=== PATIENT | male | born 1960 | race Hispanic/Latino ===

== ENCOUNTER → 2023-08-02 | Outpatient (CLI) | payer OTHER ==
[~2023-08-02] MED LIST: FEXO180T94 PO; LOSA-424 PO; NAPR-1023 PO; TADA5TAB PO; TRAM1TAB2 PO
== END | disposition home or self-care (01) ==
LOC: RAH 12:49
PROVIDERS: ATTEND Internal Medicine Cardiovascular Disease
DX: Z13.6 Encounter for screening for cardiovascular disorders (principal)
CPT/HCPCS: 75571

== ENCOUNTER → 2023-08-17 | Outpatient (CLI) | payer OTHER | END | disposition home or self-care (01) | LOC: RAH 13:58 | PROVIDERS: ATTEND Internal Medicine Cardiovascular Disease | DX: I51.7 Cardiomegaly (principal); R07.9 Chest pain, unspecified | CPT/HCPCS: 93306 ==

== ENCOUNTER → 2023-08-23 | Outpatient (CLI) | payer OTHER ==
[~2023-08-23] MED LIST changes: +REGADENOSON 0.4 MG/5 ML PF SYG IVP SCH
== END | disposition home or self-care (01) ==
LOC: RAH 08:51
PROVIDERS: ATTEND Internal Medicine Cardiovascular Disease
DX: R94.31 Abnormal electrocardiogram [ECG] [EKG] (principal)
CPT/HCPCS: 78452; 96374; 93017; J2785; A9500 ×2

== ENCOUNTER 2024-10-03 07:22 | Observation (INO) | payer OTHER ==
--- NOTE | 2024-10-01 13:04 | EKG ---
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
[2024-10-01 13:10] VITALS: BP 151/83; PULSE 69; RESP 16; TEMP 97.9
[~2024-10-03] VITALS: Ht 180.3 cm; Wt 110.2 kg
[2024-10-03] VITALS (25 sets, daily range): BP systolic 110–179; BP diastolic 52–96; PULSE 65–98; RESP 11–20; TEMP 96.9–98.5; O2SAT 94–96
[~2024-10-03 07:22] MED LIST changes: +EZET10TA81 PO; +FINA5TAB41 PO; -NAPR-1023 PO; -REGADENOSON 0.4 MG/5 ML PF SYG IVP SCH; -TADA5TAB PO
[2024-10-03] MEDS ORDERED: SUCCINYLCHOLINE CHLORIDE 20 MG/ML 10 ML VIAL ONE (07:33)
[2024-10-03] MEDS ORDERED: ondanSETRON 4MG INJ ONE (07:33)
[2024-10-03] MEDS ORDERED: LIDOCAINE PF 100MG/5ML (2%) SYRINGE 5ML ONE (07:33)
[2024-10-03] MEDS ORDERED: rocuRONium bROMide 10MG/1ML 5ML VL ONE (07:34)
[2024-10-03] MEDS ORDERED: dexaMETHasone SOD PHOSPHATE 10MG/ML 1ML VIAL ONE (07:34)
[2024-10-03] MEDS ORDERED: GLYCOPYRROLATE 0.2 MG/ML 5 ML VIAL ONE (07:34)
[2024-10-03] MEDS ORDERED: NEOSTIGMINE METHYLSULFATE 1MG/ML IV ONE (07:34)
[2024-10-03] MEDS ORDERED: FENTanyl CITRate PF 50 MCG/1 ML 2ML VIAL ONE ×4 (07:34→16:19)
[2024-10-03] MEDS ORDERED: proPOFol 10 MG/ML 20ML VIAL IV ONE (07:34)
[2024-10-03] MEDS ORDERED: MIDAZOLAM HCL 1 MG/ML 2ML VIAL ONE (07:43)
[2024-10-03] MEDS: ceFAZolin SODIUM 2 GM VIAL ONE (07:58)
[2024-10-03] MEDS: LACTATED RINGERS 1000ML 1,000 ML IV ONE (07:58)
[2024-10-03] MEDS: ceFAZolin SODIUM 1 GM VIAL ONE ×2 (12:13→14:26)
[2024-10-03] MEDS ORDERED: phenylEPHRINE HCL 10 MG/ML 1ML VIAL IV ONE (12:21)
--- NOTE | 2024-10-03 16:14 | OP ---
Operative Note: DATE OF PROCEDURE: 10/03/24 SURGEON: TEOFILO WILEY MD STRETCHER OPERATOR: [Conchita Baxter CFA] ANESTHESIA: [General anesthesia plus regional block] ANESTHESIOLOGIST/CHAIR MECHANIC: [drew Barrera CRNA] PREOPERATIVE DIAGNOSIS: [Right ankle arthritis] POSTOPERATIVE DIAGNOSIS: [Posttraumatic arthritis right ankle, cables foot] PROCEDURE: [Right ankle fusion] ESTIMATED BLOOD LOSS: [200 mL] INDICATIONS: [64-year-old male with history of chronic pain to the right ankle that exacerbated in the last year. X-rays show the presence of very severe arthrosis of the right ankle. The patient has a congenital cavovarus deformity. The presence of the both the operating room for a right ankle fusion. Procedure understood, risks, benefits and possible complications and agreed signed the consent form] DESCRIPTION OF PROCEDURE: [ After general anesthesia was achieved and placement of a regional block the patient's right lower extremity was prepped and draped in the usual manner previous placement of the tourniquet in the proximal thigh. The extremity was elevated and exsanguinated with an Esmarch and the tourniquet was inflated to 250 mmHg. Attention was given to the right ankle where a longitudinal incision was made in the lateral aspect just proximal to of the lateral malleolus and extended curvilinearly of the tip of the malleolus distally. The dissection was carried down through the subcutaneous tissue under the fibular was reached and then subperiosteal dissection was carried down to expose it. It was noted that the fibula had posttraumatic changes of the lateral malleolus that involved the tibia which was encased in the anterior aspect of the fibula with the use of an oscillating saw the distal shaft of the fibula was cut and then dissection was carried down around the fibular lateral malleolus until we were able to remove it. There was a large anterior osteophyte on the tibia that we removed with the use of an osteotome and the same was in the neck of the talus and this allowed for a improvement in the motion of the ankle. Once this was achieved we proceeded to applied to guidewires in the distal tibia and talus with the use of the alignment is present we proceeded to use this pin as a support to be able to open the joint. Then with the use of an osteotome we proceeded to scrape off the remaining cartilage followed by the use of the straight and curved curettes and finishing with the use of the small bur to wrist the subchondral bone in both surfaces. At the same time with a bur we gave some shaped to the tibia and talus to make them congruent. With the use of the curved curette we cleaned the medial tibial talar surface and we are able to reach a neutral position of the ankle maintaining the posterior translation as much as possible for this also be necessary to remove a large posterior osteophyte posteriorly in the tibia. We then proceeded to immobilize the ankle joint with the application of two guidewires from the 6.7 cannulated screw system after several attempts. The x-ray demonstrating adequate apposition of the surfaces in a neutral angle, eliminating the preoperative slight varus present. the patient has a cavovarus deformity with a high arch which made a little difficult to assess the normal position of the foot.After we were satisfied with the position of the pins we then proceeded to over ream this pins and then we applied two cannulated screws. The proximal from the tibia to the talus was a short thread screw and the one from the talus distally to the tibial proximally and medially once the long thread with the use of a washer. Adequate compression was obtained of the surfaces and after x-rays were taken we then proceeded to fill in some small gaps of bone with cancellous bone from the remaining fibular bone. Three views of the ankle revealed a neutral position with very minimal anterior and lateral translation of the talus in reference of the tibia. The tourniquet was deflated and the bleeders were controlled with the use of the Bovie cautery and after irrigation was completed we proceeded to apply a one eight suction drain through a separate stab incision which was connected to suction. At this point we proceeded to close the wound with a approximation of the subcutaneous tissue with number 2-0 Vicryl followed by approximation of the skin with horizontal mattress stitches with 2-0 nylon. The small incision made in the anteromedial aspect of the tibia to accommodate the pin was also closed with nylon sutures. At this point the wound was covered with Xeroform, 4x4s and cast padding. The drapes were then removed and the patient was placed in a very well cast padded posterior splint with fiberglass and secured with Rony bandages. The drain was connected to suction reservoir. He was then transferred to his bed and taken to recovery room for follow-up by anesthesia. There were no complications during the procedure TEOFILO WILEY MD Oct 03, 2024 16:14
--- NOTE | 2024-10-03 16:24 | HMCIMG ---
ANKLE COMP 3VWS RT REASON: ORIF RIGHT ANKLE FUSION, SX TECHNIQUE: 5 surgical spot views were obtained. These document right tibiotalar joint fusion procedure. Fluoroscopy time was 44 seconds. IMPRESSION: 1. Documentation of right ankle tibiotalar fusion procedure.
[2024-10-03] MEDS ORDERED: DiphenhydrAMINE HCL 50 MG/ML VIAL IVP PRN (16:30)
[2024-10-03] MEDS ORDERED: PoTASSium chloRIDE 20MEQ/100ML 100 ML IV PRN (16:30)
[2024-10-03] MEDS ORDERED: FERROUS FUMARATE 324 MG TABLET PO PRN (16:30)
[2024-10-03] MEDS ORDERED: PoTASSium chloRIDE 20MEQ ER 20 MEQ ERTAB PO PRN (16:30)
[2024-10-03] MEDS ORDERED: PoTASSium chl 10% ELIXIR 20MEQ 20 MEQ/15 ML UDCUP PO PRN (16:30)
[2024-10-03] MEDS ORDERED: PROMETHAZINE HCL 25 MG/ML 1ML AMPULE IM PRN (16:30)
[2024-10-03] MEDS ORDERED: CALCIUM CARB 500MG PO PRN (16:30)
[2024-10-03] MEDS ORDERED: DiphenhydrAMINE HCL 25 MG CAPSULE PO PRN (16:30)
[2024-10-03] MEDS ORDERED: ceFAZolin SODIUM 2 GM VIAL IVP SCH (16:30)
[2024-10-03] MEDS: acetaMINOPHEN 100 ML ONE (16:49)
[2024-10-03] MEDS: MEPERIDINE-PF 50 MG/ML SYG ONE (17:06)
--- NOTE | 2024-10-03 17:55 | NUR ---
arrival to unit alert and oriented x4, family at bedside, 2L O2 nasal cannula, vitals stable, right lower extremity dressing intact, no drainage, hemovac in place. RT called for incentive spirometer
[2024-10-03] MEDS: FAMOTIDINE 20MG TAB PO SCH (20:47)
[2024-10-03] MEDS: ceFAZolin SODIUM 2 GM VIAL IVP SCH (20:47)
[2024-10-03] MEDS: 0.9%NACL 1000ML 1,000 ML IV SCH (21:00)
[2024-10-03] MEDS: TEMAZepam 15 MG CAPSULE PO PRN (23:01)
[2024-10-04 03:32] VITALS: BP 132/83; PULSE 70; RESP 20; TEMP 99.1
[2024-10-04 08:00] VITALS: BP 139/78; PULSE 72; RESP 19; TEMP 98.6
[2024-10-04] MEDS ORDERED: tamSULOsin HCL 0.4 MG CAP.ER.24H PO SCH (09:00)
[2024-10-04] MEDS: hydroCHLOROthiazide 25 MG TABLET PO SCH (09:00)
[2024-10-04] MEDS: finaSTERide 5 MG TABLET PO SCH (09:00)
[2024-10-04] MEDS: LoSARTan 100 MG TABLET PO SCH (09:00)
[2024-10-04] MEDS: EZETIMIBE 10 MG TAB PO SCH (09:00)
[2024-10-04] MEDS: polyETHYLene GLYCol 3350 17 GM POWD.PACK PO SCH (09:14)
[2024-10-04] MEDS: ENOXAPARIN SODIUM 40 MG/0.4 ML SYRINGE SQ SCH (09:14)
--- NOTE | 2024-10-04 10:54 | PN ---
Ortho postop day one. This morning the patient is awake alert and oriented. is at the bedside. He is reporting little to no pain states that still has some numbness to his toes. Vital signs have been stable he is afebrile. He is voiding on his own. Dressing to lower extremity includes posterior splint that is intact. The capillary refill to his toes is less than 3 seconds. Hemovac has about 10 mL of sanguinous fluid. He is pending physical therapy this morning and likely discharge after therapy has assessed his negotiating ambulation with a walker. He understands he is to be nonweightbearing. He can toe-touch her heel touch for balance but no full weight-bearing or partial weight-bearing. Assessment status post right ankle fusion. Plan continue with Dr. Olson protocol and discharge planning. Vitals/Labs Vital Signs Date Time Temp Pulse Resp B/P (MAP) Pulse Ox O2 Delivery O2 Flow Rate FiO2 10/04/24 08:00 98.6 72 19 139/78 95 Room Air 10/04/24 03:32 2.0 10/03/24 20:47 21 Medications Current Medications Cefazolin Sodium 2 gm STK-MED ONCE .ROUTE Last administered on 10/03/24at 11:55; Start 10/03/24 at 06:49; Stop 10/03/24 at 06:50; Status DC Lactated Ringer's 1,000 ml @ As Directed STK-MED ONCE IV Last administered on 10/03/24at 07:58; Start 10/03/24 at 06:49; Stop 10/03/24 at 06:50; Status DC Lidocaine HCl 100 mg STK-MED ONCE .ROUTE; Start 10/03/24 at 07:33; Stop 10/03/24 at 07:34; Status DC Ondansetron HCl 4 mg STK-MED ONCE .ROUTE; Start 10/03/24 at 07:33; Stop 10/03/24 at 07:34; Status DC Succinylcholine Chloride 200 mg STK-MED ONCE .ROUTE; Start 10/03/24 at 07:33; Stop 10/03/24 at 07:34; Status DC Dexamethasone Sodium Phosphate 10 mg STK-MED ONCE .ROUTE; Start 10/03/24 at 07:34; Stop 10/03/24 at 07:34; Status DC Glycopyrrolate 1 mg STK-MED ONCE .ROUTE; Start 10/03/24 at 07:34; Stop 10/03/24 at 07:34; Status DC Propofol 200 mg STK-MED ONCE IV; Start 10/03/24 at 07:34; Stop 10/03/24 at 07 :34; Status DC Neostigmine Methylsulfate 10 mg STK-MED ONCE IV; Start 10/03/24 at 07:34; Stop 10/03/24 at 07:34; Status DC Rocuronium [place] 50 mg STK-MED ONCE .ROUTE; Start 10/03/24 at 07:34; Stop 10/03/24 at 07:34; Status DC Fentanyl Citrate 100 mcg STK-MED ONCE .ROUTE; Start 10/03/24 at 07:34; Stop 10/03/24 at 07:35; Status DC Midazolam HCl 2 mg STK-MED ONCE .ROUTE; Start 10/03/24 at 07:43; Stop 10/03/24 at 07:44; Status DC Cefazolin Sodium 1 gm STK-MED ONCE .ROUTE Last administered on 10/03/24at 12:13; Start 10/03/24 at 11:41; Stop 10/03/24 at 11:42; Status DC Fentanyl Citrate 100 mcg STK-MED ONCE .ROUTE; Start 10/03/24 at 12:10; Stop 10/03/24 at 12:10; Status DC Phenylephrine HCl 10 mg STK-MED ONCE IV; Start 10/03/24 at 12:21; Stop 10/03/24 at 12:21; Status DC Cefazolin Sodium 1 gm STK-MED ONCE .ROUTE Last administered on 10/03/24at 14:26; Start 10/03/24 at 14:25; Stop 10/03/24 at 14:25; Status DC Fentanyl Citrate 100 mcg STK-MED ONCE .ROUTE; Start 10/03/24 at 14:37; Stop 10/03/24 at 14:37; Status DC Sodium Chloride 1,000 ml @ 100 mls/hr Q10H IV; Start 10/03/24 at 16:30; Stop 10/04/24 at 16:29 Enoxaparin Sodium 40 mg DAILY SQ Last administered on 10/04/24at 09:14; Start 10/04/24 at 09:00; Stop 11/03/24 at 08:59 Polyethylene Glycol 17 gm DAILY PO Last administered on 10/04/24at 09:14; Start 10/04/24 at 09:00; Stop 11/03/24 at 08:59 Psyllium Hydrophilic Mucilloid 1 tbs DAILYLUNCH PO; Start 10/04/24 at 12:00; Stop 11/03/24 at 11:59 Ketorolac Tromethamine 30 mg Q6H PRN IV; Start 10/03/24 at 16:30; Stop 10/08/24 at 16:29 Famotidine 20 mg BID PO Last administered on 10/03/24at 20:47; Start 10/03/24 at 21:00; Stop 11/02/24 at 20:59 Tamsulosin HCl 0.4 mg DAILY PO; Start 10/04/24 at 09:00; Stop 10/04/24 at 00:41; Status DC Ferrous Fumarate 324 mg DAILY PRN PO; Start 10/03/24 at 16:30; Stop 11/02/24 at 16:29 Temazepam 15 mg HS PRN PO Last administered on 10/03/24at 23:01; Start 10/03/24 at 16:30; Stop 11/02/24 at 16:29 Promethazine HCl 25 mg Q4H PRN IM; Start 10/03/24 at 16:30; Stop 11/02/24 at 16:29 Calcium Carbonate 500 mg Q12H PRN PO; Start 10/03/24 at 16:30; Stop 11/02/24 at 16:29 Diphenhydramine HCl 25 mg Q6H PRN PO; Start 10/03/24 at 16:30; Stop 11/02/24 at 16:29 Diphenhydramine HCl 25 mg Q6H PRN IVP; Start 10/03/24 at 16:30; Stop 10/03/24 at 16:20; Status DC Cefazolin Sodium 2 gm Q8H IVP; Start 10/03/24 at 16:30; Stop 10/03/24 at 19:13; Status DC Potassium Chloride 100 ml @ 100 mls/hr AD PRN IV; Start 10/03/24 at 16:30; Stop 11/02/24 at 16:29 Potassium Chloride 20 meq AD PRN PO; Start 10/03/24 at 16:30; Stop 11/02/24 at 16:29 Potassium Chloride 20 meq AD PRN PO; Start 10/03/24 at 16:30; Stop 11/02/24 at 16:29 Acetaminophen/ Hydrocodone Bitart Q4H PRN PO; Start 10/03/24 at 16:30; Stop 10/08/24 at 16:29 Fentanyl Citrate 100 mcg STK-MED ONCE .ROUTE; Start 10/03/24 at 16:19; Stop 10/03/24 at 16:19; Status DC Acetaminophen 100 ml @ As Directed STK-MED ONCE .ROUTE; Start 10/03/24 at 16:49; Stop 10/03/24 at 16:51; Status DC Meperidine HCl 50 mg STK-MED ONCE .ROUTE Last administered on 10/03/24at 17:06; Start 10/03/24 at 17:02; Stop 10/03/24 at 17:02; Status DC Cefazolin Sodium 2 gm Q8H IVP Last administered on 10/04/24at 05:51; Start 10/03/24 at 21:00; Stop 10/04/24 at 05:01; Status DC EZETIMIBE 10 mg DAILY PO; Start 10/04/24 at 09:00; Stop 11/03/24 at 08:59 Finasteride 5 mg DAILY PO; Start 10/04/24 at 09:00; Stop 11/03/24 at 08:59 Home Med DAILY PO; Start 10/04/24 at 09:00; Stop 11/03/24 at 08:59 Losartan Potassium 100 mg DAILY PO; Start 10/04/24 at 09:00; Stop 11/03/24 at 08:59 Hydrochlorothiazide 12.5 mg DAILY PO; Start 10/04/24 at 09:00; Stop 11/03/24 at 08:59 TAMIKO AG NP Oct 04, 2024 10:54
--- NOTE | 2024-10-04 11:29 | NUR ---
Pt wants to go home. Pt has two steps to enter the home. Pt participated in stair training with sabas tripathi. Pt required Mod A x2. Pt demonstrates impulsiveness and was unsafe with stair training. Pt was recommended to go to rehab for stair training and safe DC home. If pt wants to go home pt was instructed on getting on the ground and scooting self up the steps for safe negotiation of steps.
[2024-10-04 12:00] VITALS: BP 151/92; PULSE 75; RESP 19; TEMP 98.2
[2024-10-04] MEDS: PSYLLIUM SEED 1 EACH PACKET PO SCH (12:00)
--- NOTE | 2024-10-04 12:49 | NUR ---
[facility] CM MET WITH PT AND IN ROOM, ASSESSMENT DONE. PATIENT IS INDEPENDENT PRIOR TO SURGERY, LIVES AT HOME WITH HIS . PT VERBALIAED HE HAS A KNEE SCOOTER, CRUTCHES, SHOWER CHAIR, BEDSIDE COMMODE, CANE. DENIES ANY OTHER EQUIPMENT/SERVICES. [facility]. FEELS SAFE TO GO BACK HOME, STILL DRIVE AND WORK, ABLE TO ASSIST WITH TRANSPORTATION AND NEEDS NECESSARY. DISCUSSED POSSIBLE HOME W/HH AND DME(WALKER) PENDING MD RECOMMENDATIONS AT THIS TIME, PT VERBALIZED HE PREFERS TO USE HIS CRUTCHES HE ALREADY KNOWS HOW TO USE IT AND IT IS DIFFICULT FOR HIM TO USE THE WALKER. PT SIGNED [facility] IF NEEDED. PT MADE AWARE WILL AWAIT DR INEZ HUTCHISON. PLAN FOR NOW IS HOME, PT VERBALIZED HE DOES NOT WANT TO GO ANYWHERE ELSE BUT HOME, PT STATE HE ALSO HAS MCR/ INSURANCE IN CASE NEEDED. CM TO CONTINUE TO FOLLOW UP. CM ASKED DR WILEY IF THERE'S ANY HH/DME NEEDS ON DC VIA SECURE TEXT, PENDING MD RESPONSE. Addendum: 10/04/24 at 1254 by ARIELLA TIJERINA LVN Amended: Links added.
[2024-10-04] MEDS ORDERED: HYDR-4060 PO (13:33)
[2024-10-04] MEDS: HYDROcodone/APAP 5/325 1 TAB TABLET PO PRN (14:07)
[2024-10-04] MEDS: ketOROlac 30MG VIAL (30MG/ML) IV PRN (15:39)
--- NOTE | 2024-10-04 16:18 | NUR ---
Discharge Patient been discharge home, all discharge instructions given to patient, all questions answered, no concerns at this time, aware of folllow up with Dr. Olson, aware pain medications sent electronically to his pharmacy of choice.
== END 2024-10-04 16:00 | disposition home or self-care (01) ==
LOC: DAH 07:22 → DAHIP 07:23 → DAH 07:23 → 4AH 17:55
PROVIDERS: ADMIT Orthopaedic Surgery; ATTEND Orthopaedic Surgery
DX: M19.171 Post-traumatic osteoarthritis, right ankle and foot (principal); M19.071 Primary osteoarthritis, right ankle and foot; G89.18 Other acute postprocedural pain; Z79.899 Other long term (current) drug therapy
CPT/HCPCS: 93005; 64445; 27870; 96374; 88311; 88305; 73610; 96376; 96372; 96375; 97161; 97116 ×2; 97530 ×3; C1769; C1713 ×2; G0378 ×20; A4663; J7120 ×2; A4649 ×2; J3010 ×4; J0690 ×5; J1100; J0330; J3490 ×2; J2003; J2250; J2704; J2405; J2710; J2175; J2371; A6223; A4930; A5120; A4215 ×2; A4223; A4222; A4221; J1885; J1650

== ENCOUNTER → 2025-05-08 | Outpatient (CLI) | payer OTHER ==
[~2025-05-08] MED LIST changes: +HYDR-4060 PO
--- NOTE | 2025-05-09 07:04 | HMCIMG ---
EXAM: CT Ankle, left, without IV contrast. CLINICAL HISTORY: Acquired clubfoot, right foot. TECHNIQUE: Axial computed tomography images of the left ankle without intravenous contrast. CONTRAST: Without. COMPARISON: None provided. FINDINGS: BONES: Postsurgical changes of distal fibular osteotomy and tibiotalar arthrodesis are demonstrated, with no hardware-related complication. Irregular cortical thickening with periosteal reaction is noted along the distal shaft of the tibia. Osteopenia involves the tarsal bones and visualised bases of the metatarsals. Few sclerotic bone fragments are present within the subcutaneous plane posterolaterally. JOINTS: Tibiotalar arthrodesis is in keeping with prior surgical intervention. No dislocation. SOFT TISSUES: Soft tissue swelling with overlying ulceration is noted along the posterolateral aspect of the joint. No discrete soft tissue fluid collection. No radiopaque foreign body. Calcific atherosclerotic changes are seen in the distal arteries. IMPRESSION: 1. Postsurgical changes of distal fibular osteotomy and tibiotalar arthrodesis, without hardware complications. 2. Irregular cortical thickening with periosteal reaction along the distal tibial shaft. 3. Soft tissue swelling with overlying ulceration posterolaterally, with sclerotic bone fragments in the subcutaneous plane. /[place]
== END | disposition home or self-care (01) ==
LOC: RAH 13:44
PROVIDERS: ATTEND Orthopaedic Surgery
DX: L97.516 Non-pressure chronic ulcer of other part of right foot with bone involvement without evidence of necrosis (principal); M21.541 Acquired clubfoot, right foot; I25.10 Atherosclerotic heart disease of native coronary artery without angina pectoris; Z98.1 Arthrodesis status
CPT/HCPCS: 73700